=== PATIENT | female | born 1970 ===

== ENCOUNTER 2022-03-12 06:00 | Outpatient (RCR) | payer BC, SELFPAY | END 2022-03-30 23:59 | disposition home or self-care (01) | LOC: MPT 06:00 | PROVIDERS: Visit Provider Pediatrics | DX: M79.672 Pain in left foot (principal); M76.62 Achilles tendinitis, left leg | CPT/HCPCS: 97110; 97140; 97161 ==

== ENCOUNTER → 2024-11-16 11:55 | Outpatient (BNVA) | payer BC, SELFPAY | PROVIDERS: PCP Family Medicine; Visit Provider Family Medicine | DX: E03.9 Hypothyroidism, unspecified (principal) | CPT/HCPCS: 84439; 84443; 84481 ==